=== PATIENT | female | born 1960 | race Caucasian/White ===

== ENCOUNTER 2018-01-12 05:53 | Emergency (ER) | payer BC ==
[2018-01-12] MEDS: MORPHINE 4 MG/ML 1ML VIAL/SYRINGE (J2270) IV (06:22)
[2018-01-12] MEDS: ONDANSETRON 4MG/2ML VIAL (J2405) IV (06:23)
[2018-01-12] MEDS: ASPIRIN 325 MG TAB PO (06:23)
[2018-01-12] MEDS: NITROGLYCERIN 2% OINT 1 GM *U/D* PKT TOP (06:23)
[2018-01-12 06:27] LABS: BASO # 0.1 10^3/uL (0.0-0.2); BASO % 0.5 % (0.0-1.0); EOS # 0.2 10^3/uL (0.0-0.50); EOS % 1.9 % (0.0-3.0); HEMATOCRIT 42.9 % (36.0-47.0); HEMOGLOBIN 14.7 g/dl (12.0-15.5); IMMATURE GRANULOCYTE % 0.6 % (0-3.0); LYMPH # 1.9 10^3/uL (1.5-4.5); LYMPH % 15.9 % (24.0-44.0); MEAN CORPUSCULAR HGB CONC 34.3 g/dl (32.0-36.5); MEAN CORPUSCULAR VOLUME 93.5 fl (80.0-96.0); MONO # 0.7 10^3/uL (0.0-0.8); MONO % 5.8 % (0.0-5.0); NEUTROPHILS # 9.1 10^3/uL (1.8-7.7); NEUTROPHILS % 75.3 % (36.0-66.0); PLATELET COUNT, AUTOMATED 344 10^3/uL (150-450); RED BLOOD COUNT 4.59 10^6/uL (4.00-5.40); RED CELL DISTRIBUTION WIDTH 13.1 % (11.5-14.5); WHITE BLOOD COUNT 12.1 10^3/uL (4.0-10.0)
[2018-01-12 06:40] LABS: INR 0.77; PROTHROMBIN TIME 10.8 SECONDS (12.4-14.5)
[2018-01-12 06:41] LABS: PARTIAL THROMBOPLASTIN TIME 30.3 SECONDS (26.8-37.9)
[2018-01-12] MEDS: PANTOPRAZOLE 40MG INJ (PROTONIX) (C9113) IV (06:50)
[2018-01-12] MEDS: GI COCKTAIL 50ML BTL(HYOSCYAMINE/MAALOX/LIDOCAINE VISCOUS)(1:3:1) PO (06:50)
[2018-01-12] MEDS: MORPHINE 2 MG/ML 1ML SYRINGE (J2270) IV (07:25)
[2018-01-12] MEDS: NITROGLYCERIN 0.4 MG SUBL TABLET SL (07:25)
[2018-01-12 07:33] LABS: ALBUMIN 3.8 GM/DL (3.2-5.2); ALKALINE PHOSPHATASE 67 U/L (45-117); ALT/SGPT 27 U/L (12-78); ANION GAP 10 MEQ/L (8-16); AST/SGOT 26 U/L (7-37); BILIRUBIN,DIRECT < 0.1 MG/DL (0.0-0.2); BILIRUBIN,TOTAL 0.4 MG/DL (0.2-1.0); BLOOD UREA NITROGEN 11 MG/DL (7-18); CALCIUM LEVEL 9.1 MG/DL (8.5-10.1); CARBON DIOXIDE LEVEL 22 MEQ/L (21-32); CHLORIDE LEVEL 111 MEQ/L (98-107); CPK CREATINE PHOSPHOKINASE 79 U/L (26-192); CREATININE FOR GFR 0.59 MG/DL (0.55-1.30); GLOMERULAR FILTRATION RATE > 60.0 (>51); GLUCOSE, FASTING 129 MG/DL (70-100); LIPASE 101 U/L (73-393); MB/CK RELATIVE INDEX 2.53 (< OR =4); POTASSIUM SERUM 4.1 MEQ/L (3.5-5.1); SODIUM LEVEL 143 MEQ/L (136-145); TOTAL PROTEIN 7.6 GM/DL (6.4-8.2); TROPONIN I < 0.02 NG/ML (< 0.10)
[2018-01-12 10:34] LABS: BASO # 0.1 10^3/uL (0.0-0.2); BASO % 0.3 % (0.0-1.0); EOS % 0.1 % (0.0-3.0); HEMATOCRIT 42.9 % (36.0-47.0); HEMOGLOBIN 14.5 g/dl (12.0-15.5); IMMATURE GRANULOCYTE % 0.3 % (0-3.0); LYMPH # 0.8 10^3/uL (1.5-4.5); MEAN CORPUSCULAR HEMOGLOBIN 31.8 pg (27.0-33.0); MEAN CORPUSCULAR HGB CONC 33.8 g/dl (32.0-36.5); MEAN CORPUSCULAR VOLUME 94.1 fl (80.0-96.0); MONO # 0.6 10^3/uL (0.0-0.8); MONO % 4.1 % (0.0-5.0); NEUTROPHILS # 13.6 10^3/uL (1.8-7.7); NEUTROPHILS % 90.2 % (36.0-66.0); PLATELET COUNT, AUTOMATED 310 10^3/uL (150-450); RED BLOOD COUNT 4.56 10^6/uL (4.00-5.40); RED CELL DISTRIBUTION WIDTH 13.1 % (11.5-14.5); WHITE BLOOD COUNT 15.1 10^3/uL (4.0-10.0)
[2018-01-12 10:48] LABS: CK-MB VALUE MASS 1.9 NG/ML (<3.6); CPK CREATINE PHOSPHOKINASE 66 U/L (26-192); MB/CK RELATIVE INDEX 2.87 (< OR =4); TROPONIN I < 0.02 NG/ML (< 0.10)
[2018-01-12] MEDS: NS 1,000 ML IV (11:41)
[2018-01-12] MEDS: KETOROLAC 30 MG/ML VIAL (J1885) IV (11:41)
[2018-01-12] MEDS: PIPERACILLIN/TAZOBACTAM SOD 3.375 GM in D5W MINI-BAG PLUS 50 ML IV (11:42)
== END 2018-01-12 14:36 | disposition home or self-care (01) ==
LOC: M ED 05:53
DX: R07.9 Chest pain, unspecified (principal); K80.00 Calculus of gallbladder with acute cholecystitis without obstruction; N28.1 Cyst of kidney, acquired; R00.1 Bradycardia, unspecified; G35 Multiple sclerosis; Z79.899 Other long term (current) drug therapy
CPT/HCPCS: C9113

== ENCOUNTER 2018-02-21 13:01 | Day surgery (SDC) | payer BC ==
[~2018-02-21 13:01] MED LIST: LR 1,000 ML IV
[2018-02-21] MEDS ORDERED: BUPIVACAINE HCL 0.25% 30 ML VIAL As Ordered (13:41)
[2018-02-21] MEDS ORDERED: PROPOFOL 200 MG/20 ML VIAL As Ordered (15:11)
[2018-02-21] MEDS ORDERED: METOCLOPRAMIDE INJ 10MG/2ML VIAL (J2765) As Ordered (15:11)
[2018-02-21] MEDS ORDERED: LIDOCAINE 2% INJ 100 MG/5 ML SDV (FOR ANES.) As Ordered (15:11)
[2018-02-21] MEDS ORDERED: fentaNYL 100 MCG/2 ML INJECTION (J3010) As Ordered ×2 (15:11→15:12)
[2018-02-21] MEDS ORDERED: ROCURONIUM BROMIDE 50 MG/5 ML VIAL As Ordered ×2 (15:11→15:46)
[2018-02-21] MEDS ORDERED: SUGAMMADEX SODIUM 500 MG/5 ML VIAL (BRIDION) As Ordered (15:11)
[2018-02-21] MEDS ORDERED: ONDANSETRON 4MG/2ML VIAL (J2405) As Ordered (15:11)
[2018-02-21] MEDS ORDERED: dexameTHASONE 4 MG/ML 1ML VIAL (J1100) As Ordered (15:11)
[2018-02-21] MEDS ORDERED: MIDAZOLAM INJ 2 MG/2 ML VIAL (J2250) As Ordered (15:11)
[2018-02-21] MEDS ORDERED: GLYCOPYRROLATE INJ 0.2 MG/ML 2 ML VIAL As Ordered (15:19)
[2018-02-21] MEDS ORDERED: LABETALOL HCL 100 MG/20 ML VIAL As Ordered (15:40)
[2018-02-21] MEDS: ZOSYN 3.375 GM VIAL (J2543) As Ordered (16:05)
[2018-02-21] MEDS: LR 1,000 ML IV (17:38)
[2018-02-21] MEDS ORDERED: fentaNYL 100 MCG/2 ML INJECTION (J3010) IV (18:00)
[2018-02-21] MEDS ORDERED: ONDANSETRON 4MG/2ML VIAL (J2405) IV (18:00)
[2018-02-21] MEDS ORDERED: NORCO, ANEXSIA 5/325MG TABLET (HYDROcodone/ACETAMINOPHEN) PO ×2 (18:00)
[2018-02-21] MEDS ORDERED: ACETAMINOPHEN TAB 650MG DOSE (2X325MG) PO (18:00)
[2018-02-21] MEDS: IBUPROFEN 600 MG TAB PO (18:10)
== END 2018-02-21 19:20 | disposition home or self-care (01) ==
LOC: M SDC 13:01
DX: K80.18 Calculus of gallbladder with other cholecystitis without obstruction (principal); E04.1 Nontoxic single thyroid nodule; G35 Multiple sclerosis; Z79.899 Other long term (current) drug therapy
CPT/HCPCS: 47562

== ENCOUNTER 2018-06-27 06:41 | Day surgery (SDC) | payer BC ==
[~2018-06-27] VITALS: Ht 170.2 cm; Wt 83.9 kg
[~2018-06-27 06:41] MED LIST changes: +CIPR500T3 PO; +COPA1INJ SC; -LR 1,000 ML IV; +NORCOTAB PO; +NS 1,000 ML IV SCH; +PAXI40TA10 PO; +PRED1SOL3 OD; +VITA1CAP14 PO
[2018-06-27] MEDS ORDERED: SIMETHICONE 40MG/0.6ML DROPS 30ML As Ordered ONE (07:01)
[2018-06-27] MEDS ORDERED: LIDOCAINE 2% INJ 100 MG/5 ML SDV (FOR ANES.) As Ordered ONE (07:45)
[2018-06-27] MEDS ORDERED: PROPOFOL 200 MG/20 ML VIAL As Ordered ONE ×3 (07:45→08:11)
--- NOTE | 2018-06-27 08:22 | ROOR ---
Patient Name: Barbara Tavares Procedure Date: 06/27/2018 7:27 AM Date of : 1960 Age: 57 Room: [facility] Gender: Female Note Status: Finalized Procedure: Colonoscopy Indications: Screening for colorectal malignant neoplasm, This is the patient's first colonoscopy Providers: Judd Vivar MD Referring MD: Madison CASON MD Requesting Provider: Medicines: Monitored Anesthesia Care Complications: No immediate complications. Procedure: Pre-Anesthesia Assessment: - Prior to the procedure, a History and Physical was performed, and patient medications and allergies were reviewed. The patient is competent. The risks and benefits of the procedure and the sedation options and risks were discussed with the patient. All questions were answered and informed consent was obtained. Patient identification and proposed procedure were verified by the physician, the nurse and the anesthesiologist in the procedure room. Mental Status Examination: alert and oriented. CV Examination: regular rate and rhythm. Prophylactic Antibiotics: The patient does not require prophylactic antibiotics. Prior Anticoagulants: The patient has taken no previous anticoagulant or antiplatelet agents. ASA Grade Assessment: II - A patient with mild systemic disease. After reviewing the risks and benefits, the patient was deemed in satisfactory condition to undergo the procedure. The anesthesia plan was to use monitored anesthesia care (MAC). Immediately prior to administration of medications, the patient was re-assessed for adequacy to receive sedatives. The heart rate, respiratory rate, oxygen saturations, blood pressure, adequacy of pulmonary ventilation, and response to care were monitored throughout the procedure. The physical status of the patient was re-assessed after the procedure. The was introduced through the anus and advanced to the cecum, identified by appendiceal orifice and ileocecal valve. The colonoscopy was performed without difficulty. The patient tolerated the procedure well. The quality of the bowel preparation was excellent. Findings: The perianal and digital rectal examinations were normal. A 5 mm polyp was found at 90 cm proximal to the anus. The polyp was sessile. The polyp was removed with a hot snare. Resection and retrieval were complete. A 7 mm polyp was found at 85 cm proximal to the anus. The polyp was sessile. The polyp was removed with a piecemeal technique using a hot biopsy forceps. Resection and retrieval were complete. Multiple small-mouthed diverticula were found in the sigmoid colon. Impression: - One 5 mm polyp at 90 cm proximal to the anus, removed with a hot snare. Resected and retrieved. - One 7 mm polyp at 85 cm proximal to the anus, removed piecemeal using a hot biopsy forceps. Resected and retrieved. - Diverticulosis in the sigmoid colon. Recommendation: - Discharge patient to home. - Resume previous diet. - Continue present medications. - Await pathology results. - Telephone endoscopist for pathology results in 1 week. Judd Vivar MD 06/27/2018 8:22:16 AM Number of Addenda: 0 Note Initiated On: 06/27/2018 7:27 AM Estimated Blood Loss: Estimated blood loss: none.
[2018-06-27 08:45] VITALS: BP 132/61
== END 2018-06-27 08:50 | disposition home or self-care (01) ==
LOC: M OPP 06:41
PROVIDERS: ATTEND Surgery
DX: Z12.11 Encounter for screening for malignant neoplasm of colon (principal); D12.6 Benign neoplasm of colon, unspecified

== ENCOUNTER → 2019-04-10 | Outpatient (CLI) | payer BC ==
[~2019-04-10] MED LIST changes: +HYDR-3715 PO; -NORCOTAB PO; -NS 1,000 ML IV SCH; +PROHANCE 279.3MG/ML 15ML VIAL (A9576) As Ordered ONE; +PROHANCE 279.3MG/ML 5ML VIAL (A9576) As Ordered ONE
--- NOTE | 2019-04-10 21:14 | REPVR ---
EXAM: MR Cervical Spine Without and With Contrast EXAM DATE/TIME: 04/10/2019 6:42 PM CLINICAL HISTORY: 58 years old, female; Condition or disease; Patient HX: Ms, ? progression; Additional info: Ms g35 TECHNIQUE: Imaging protocol: Multiplanar magnetic resonance images of the cervical spine without and with intravenous contrast. Contrast material: PROHANCE; Contrast volume: 18 ml; Contrast route: IV; COMPARISON: MR CERVICAL SPINE WITH AND WITHOUT CONTRAST [id number] 07/02/2017 10:06 AM FINDINGS: Vertebrae: Mild reversal of cervical lordosis stable in appearance. Spinal cord: Small focus of increased signal demonstrated in the left lateral aspect of the cervical cord at the C5-6 level consistent with a demyelinating plaque stable in appearance in comparison to the prior study. No abnormal enhancement demonstrated. C2-C3: No significant disc disease. No significant spinal stenosis. C3-C4: Mild foraminal narrowing on the right at C3-4 secondary to uncinate hypertrophic changes. C4-C5: Mild bilateral foraminal narrowing at C4-5 secondary to uncinate hypertrophic changes. C5-C6: Mild asymmetric annular bulge at C5-6 right greater than left with moderate to severe right-sided foraminal stenosis secondary to uncinate joint hypertrophic changes. C6-C7: No significant disc disease. No significant spinal stenosis. C7-T1: No significant disc disease. No significant spinal stenosis. Vertebral arteries: Expected flow voids in the vertebral arteries. Soft tissues: Unremarkable. IMPRESSION: 1. Small focus of increased signal demonstrated in the left lateral aspect of the cervical cord at the C5-6 level consistent with a demyelinating plaque stable in appearance in comparison to the prior study. No abnormal enhancement demonstrated. 2. Mild degenerative spondylosis from C3-4 to C5-6. Electronically signed by: Segundo Rutherford On 04/10/2019 21:13:48 PM
--- NOTE | 2019-04-10 21:21 | REPVR ---
EXAM: MR Head Without and With Contrast EXAM DATE/TIME: 04/10/2019 6:42 PM CLINICAL HISTORY: 58 years old, female; Condition or disease; Multiple sclerosis; Patient HX: Ms, ? progression; Additional info: Ms g35 TECHNIQUE: Imaging protocol: MR of the head without and with intravenous contrast. 3D rendering: MIP reconstructed images were created and reviewed. Contrast material: PROHANCE; Contrast volume: 18 ml; Contrast route: IV; COMPARISON: MR BRAIN WITH AND WITHOUT CONTRAST [id number] 07/02/2017 10:06 AM FINDINGS: Brain: Multiple foci of T2 lengthening demonstrated along the lateral ventricles and subcortical and centrum semiovale white matter which are stable in appearance. Several are oriented perpendicular to long axis of the ventricles consistent with demyelination. Although the distribution of the lesions is stable in appearance several lesions on the current examination appear slightly larger than noted previously, a finding which may be related to technique however mild progression of excluded. Also noted are lesions along the body and splenium of the corpus callosum stable in appearance. A small lesion at the external surface of the splenium is stable. There is no abnormal enhancement demonstrated. Ventricles: See Brain Finding. Bones/joints: Unremarkable. Soft tissues: Unremarkable. Sinuses: Normal as visualized. No acute sinusitis. Mastoid air cells: Normal as visualized. No mastoid effusion. Orbits: Unremarkable. IMPRESSION: Multiple foci of T2 lengthening as described above consistent with demyelinating disease. The possibility of mild interval progression as described above despite stability of lesion distribution is raised. Electronically signed by: Segundo Rutherford On 04/10/2019 21:21:24 PM
== END ==
LOC: M RAD 16:42
PROVIDERS: ATTEND Psychiatry & Neurology Neurology
DX: G35 Multiple sclerosis (principal)

== ENCOUNTER → 2019-04-19 | Outpatient (CLI) | payer BC ==
--- NOTE | 2019-04-20 08:44 | REP ---
MRI thoracic spine without and with IV contrast: History: Followup multiple sclerosis. Evaluate for new lesions. Comparison MRI study is reviewed from June 15, 2013. Technique: Sagittal and axial T1 and T2-weighted scans are acquired in the usual fashion with and without fat saturation. Sequences include spin echo, turbo spin-echo, and STIR imaging sequences. Gadolinium enhancement dose is 18 mL of intravenous ProHance. MRI findings: Incidental note is made of a 2.2 cm T2 hyperintense nodule in the right lobe of the thyroid gland. This may be slightly larger than 2016 but is not new. No other extra spinal abnormality is observed. Cortical and medullary bone signal intensity are unchanged. There is a tiny hemangioma in the T3 vertebral body. This is unchanged. There are mild degenerative disc changes at T6-7, T7-8, T8-9, T10-11, T11-12, and T12-L1. There is a small right posterior focal disc protrusion at T7-8 which is unchanged from the 2013 prior study. The previously noted central disc protrusion at T6-T7 is less conspicuous and appears smaller. No cord compressive lesion is seen. No new disc protrusion is observed. There is disc bulging at T11-12 unchanged. On STIR T2-weighted sagittal sequence, the previously noted T2 hyperintense lesion in the conus is again seen unchanged from the 2013 prior study. This spans approximately 12 mm in craniocaudal extent. There is a subtle ill-defined area of intramedullary T2 hyperintensity in the thoracic cord at the T5 level which is felt to be visible on the 2013 study and unchanged. Equivocal areas of increased signal are seen only on the STIR sequence at the T10-11 and T7-8 levels. Similar findings were described in 2013 on the T2-weighted axial sequences. They are felt to be unchanged. No definitely new lesion is seen. There is no abnormal gadolinium enhancement in any of these intramedullary foci on postcontrast images. No significant gadolinium enhancement is appreciated. There is no evidence of cord atrophy or enlargement. 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 Electronically Signed by Codey Bustos MD 04/20/2019 09:56 A
== END ==
LOC: M RAD 16:26
PROVIDERS: ATTEND Psychiatry & Neurology Neurology
DX: G35 Multiple sclerosis (principal); G95.89 Other specified diseases of spinal cord
CPT/HCPCS: 72157; A9576